=== PATIENT | female | born 1965 | race Caucasian/White ===

== ENCOUNTER 2016-08-13 11:14 | Emergency (ER) | payer SELFPAY ==
[2016-08-13 11:38] VITALS: BP 161/88
[2016-08-13] MEDS ORDERED: Ondansetron ODT TAB* 4 MG PO ONE (12:39)
--- NOTE | 2016-08-13 12:49 | UC ---
Psychiatric Complaint HPI - HPI Summary HPI Summary: 50 yo female on klonopin (2 mg tid) presents with anxiety she states her md is not available until next month states he gives her xanax when she gets panic attacks nausea and palpitations - History Of Current Complaint Chief Complaint: UCGeneralIllness Stated Complaint: PANIC ATTACK, LIGHT HEADED Time Seen by Provider: 08/13/16 12:32 Hx Obtained From: Patient Hx Last Menstrual Period: 09/22/2014 Onset/Duration: Gradual Onset, Lasting Days Severity Currently: None Character: Anxious Aggravating Factor(s): Nothing Alleviating Factor(s): Nothing Associated Signs And Symptoms: Negative Related History: Positive For: Prior Psychiatric Issues - Allergies/Home Medications Allergies/Adverse Reactions: Allergies Allergy/AdvReac Type Severity Reaction Status Date / Time Dicyclomine [From Bentyl] Allergy Mild Rash Verified 08/13/16 11:30 Home Medications: Home Medications Escitalopram Oxalate [Lexapro] 20 mg PO DAILY 08/13/16 [History Confirmed ] PMH/Surg Hx/FS Hx/Imm Hx Previously Healthy: Yes Endocrine History Of: Reports: Thyroid Disease Denies: Diabetes Cardiovascular History Of: Denies: Cardiac Disorders Respiratory History Of: Denies: Asthma - Surgical History Surgical History: Yes Surgery Procedure, Year, and Place: L4 - S1 Fusion, 06/2013. Partial Thyroidectomy, 2012. L4 - S1 Fusion, 2009. TUBAL LIGATION 2008. VOCAL CORD POLOP REMOVAL 2012. C SECTION - Social History Alcohol Use: None Substance Use Type: None, Prescribed Substance Use Comment - Amount & Last Used: see pt's med list Smoking Status (MU): Current Every Day Smoker Type: Cigarettes Amount Used/How Often: 5-10 CIGS DAILY Length of Time of Smoking/Using Tobacco: On and Off 15 Years Have You Smoked in the Last Year: Yes When Did the Patient Quit Smoking/Using Tobacco: 10/18/13 Household Exposure Type: Cigarettes - Immunization History Most Recent Influenza Vaccination: 2013 Most Recent Tetanus Shot: WITHIN 5 YEARS Review of Systems Constitutional: Negative Skin: Negative Eyes: Negative ENT: Negative Respiratory: Negative Cardiovascular: Palpitations Gastrointestinal: Negative Genitourinary: Negative Motor: Negative Neurovascular: Negative Musculoskeletal: Negative Neurological: Negative Psychological: Anxious All Other Systems Reviewed And Are Negative: Yes Physical Exam Triage Information Reviewed: Yes Appearance: Well-Appearing, No Pain Distress, Well-Nourished Vital Signs: Initial Vital Signs Temp 98.8 F 08/13/16 11:32 Pulse 111 08/13/16 11:32 Resp 24 08/13/16 11:32 BP 161/88 08/13/16 11:32 Pulse Ox 100 08/13/16 11:32 Vital Signs Reviewed: Yes Eyes: Positive: Conjunctiva Clear ENT: Positive: Normal ENT inspection, Hearing grossly normal Neck: Positive: Supple, Nontender, No Lymphadenopathy Respiratory: Positive: Lungs clear, Normal breath sounds, No respiratory distress Cardiovascular: Positive: RRR, Tachycardia Musculoskeletal: Positive: ROM Intact, No Edema Neurological: Positive: Alert Psychological Exam: Normal Skin Exam: Normal Diagnostics - EKG Cardiac Rate: Tachycardia Cardiac Rhythm: Sinus: Normal Ectopy: None ST Segment: Normal Psych Complaint Course/Dx - Differential Dx/Diagnosis Provider Diagnoses: anxiety Discharge - Discharge Plan Condition: Stable Disposition: HOME Prescriptions: Propranolol TAB* [Inderal TAB*] 10 mg PO QID PRN #20 tab PRN Reason: Anxiety Patient Education Materials: Anxiety (ED) Referrals: Non Staff,Doctor [Primary Care Provider] - Additional Instructions: to er for worsening symptoms see your MD first available appt
== END 2016-08-13 12:59 | disposition home or self-care (01) ==
LOC: UCCORT 11:14
DX: F41.9 Anxiety disorder, unspecified (principal); F17.210 Nicotine dependence, cigarettes, uncomplicated
CPT/HCPCS: 93005; 99212; A9270-GY; G0463